=== PATIENT | male | born 1990 | race Caucasian/White ===

== ENCOUNTER 2022-11-01 01:22 | Emergency (ER) | payer OTHER, SELFPAY ==
--- NOTE | 2022-11-01 01:24 | ECG_ITS ---
Measurements Intervals [place] Rate: 88 P: 53 RI: 163 QRS: 27 QRSD: 90 T: 20 QT: 352 QTc: 426 Interpretive Statements SINUS RHYTHM WITH SINUS ARRHYTHMIA LOW QRS VOLTAGE IN PRECORDIAL LEADS BORDERLINE ECG NO PREVIOUS ECG AVAILABLE FOR COMPARISON Electronically Signed On 11-01-2022 6:26:52 CDT by Zafar Duenas D.O.
[2022-11-01 01:31] VITALS: BP 176/96; PULSE 97; RESP 15; TEMP 36.6; O2SAT 99
[2022-11-01 01:42] VITALS: BP 168/109; PULSE 91; TEMP 36.6; O2SAT 97
--- NOTE | 2022-11-01 01:44 | ED.ALCOHOL ---
HPI - Alcohol General Chief Complaint: Alcohol Stated Complaint: alcohol withdrawl, chest feels weird Time Seen by Provider: 11/01/22 01:34 History of Present Illness HPI narrative: Patient presents to the emergency department with alcohol withdrawal symptoms. He normally drinks a pint to a pint and a half of alcohol a day. He states this has been pretty steady for 10 years but has also not always been that much of the day. His last drink was 10 hours prior to arrival to take the edge off . He states he cannot sleep but he is very anxious with a tingling feeling on the back of his head. He has been looking up AA meetings in the area Related Data Allergies Allergy/AdvReac Type Severity Reaction Status Date / Time prochlorperazine Allergy Unknown Unknown Verified 11/01/22 01:38 Review of Systems Review of Systems: Review of systems negative except for what is documented in the HPI [facility] Family History Family History Grandparent Cerebrovascular accident Diabetes mellitus Other Family history of coronary artery disease Family history of malignant neoplasm Hypertension Social History Social History Smoking status: Never smoker Alcohol intake: never Exam Narrative: GENERAL: Well-appearing, well-nourished, and in no acute distress. Slightly anxious HEAD: Normocephalic, atraumatic. EYES: PERRLA and EOMI. ENT: Nares clear, no rhinorrhea or epistaxis. Mucous membranes moist. NECK: Supple. CHEST: Clear to auscultation. No respiratory distress. HEART: Regular rate and rhythm. ABDOMEN: Soft, nontender, nondistended. EXTREMITIES: Normal range of motion. No edema. SKIN: Warm, dry, no rash. NEURO: No focal deficits. Alert and oriented x3. PSYCH: Normal mood and affect. Course Course Emergency Course: Librium ordered Telemetry ordered due to alcohol withdrawal to evaluate for dysrhythmias. Evaluated by myself. Rhythm NS Rate 80 Vital Signs Vital signs: Vital Signs Temperature 36.6 C 11/01/22 01:31 Pulse Rate 97 11/01/22 01:31 Respiratory Rate 15 11/01/22 01:31 Blood Pressure 176/96 H 11/01/22 01:31 Pulse Oximetry 99 09/20/23 01:31 Oxygen Delivery Room Air 11/01/22 01:31 Temperature 36.6 C 11/01/22 01:42 Pulse Rate 91 11/01/22 01:42 Respiratory Rate 15 11/01/22 01:31 Blood Pressure 168/109 H 11/01/22 01:42 Pulse Oximetry 97 11/01/22 01:42 Oxygen Delivery Room Air 11/01/22 01:31 MDM - Alcohol MDM Narrative Medical decision making narrative: Labs ordered and are normal Pt feeling better VSS Discharge Plan Discharge Clinical Impression: Alcohol withdrawal Qualifiers: Complication of substance-induced condition: uncomplicated Qualified Code(s): F10.930 - Alcohol use, unspecified with withdrawal, uncomplicated Patient Disposition: Home, Self-Care Condition: Stable Instructions: Antibiotic Form, Abuse of Alcohol (ED), Alcohol Withdrawal (ED) Prescriptions: New chlordiazepoxide HCl 25 mg capsule 25 mg PO TID PRN (Reason: alcohol withdrawal) Qty: 20 0RF Follow-up/Referrals: Anand Sahh MD [Primary Care Provider] - Time of Disposition: 03:45
[2022-11-01 01:47] VITALS: RESP 20; O2SAT 97
[2022-11-01] MEDS: chlordiazePOXIDE (*CRX) 25 MG CAPSULE PO (02:03)
[2022-11-01 02:04] LABS: Basophils Absolute Auto 0.1 K/mm3 (0.0-0.1); Eosinophils Absolute Auto 0.3 K/mm3 (0-0.3); Eosinophils Percent Auto 6.6 % (0-4.4); Hematocrit 44.7 % (42.0-52.0); Hemoglobin 15.5 g/dL (14.0-18.0); Immature Granulocyte Absolute 0.03 K/mm3 (0.00-0.031); Immature Granulocyte Percent A 0.6 % (0-0.5); Lymphocytes Absolute Auto 1.93 K/mm3 (0.9-3.2); Mean Corpuscular HGB Conc 34.7 g/dl (32-36); Mean Corpuscular Hemoglobin 31.6 pg (26-34); Mean Corpuscular Volume 91.2 fl (80-100); Mean Platelet Volume 11.9 fl (7.4-10.4); Monocytes Absolute Auto 0.4 K/mm3 (0.1-0.6); Monocytes Percent Auto 8.1 % (2.6-8.5); Neutrophils Absolute Auto 2.1 K/mm3 (1.3-6.7); Neutrophils Percent Auto 43.7 % (45.5-73.1); Platelet Count Result 162 k/mm3 (150-375); Red Cell Distribution Width 11.6 % (11.5-14.5); White Blood Count 4.8 K/mm3 (4.5-10.0)
[2022-11-01 02:13] LABS: Alanine Aminotransferase 269 U/L (6-50); Albumin Level 4.9 g/dL (3.5-5.1); Alkaline Phosphatase 86 U/L (38-126); Anion Gap 9 mmol/L (8-16); Aspartate Amino Transferase 163 U/L (17-59); Bilirubin,Total 0.8 mg/dL (0.2-1.3); Blood Urea Nitrogen 14 mg/dL (9-20); Calcium 9.3 mg/dL (8.4-10.2); Carbon Dioxide 28 mmol/L (22-30); Chloride 99 mmol/L (98-107); Estimated CRCL calculation 122 ml/min; Estimated Glomerular Filt Rate > 60; Glucose 126 mg/dL (65-110); Potassium 3.6 mmol/L (3.4-5.0); Sodium 136 mmol/L (137-145)
[2022-11-01 03:37] VITALS: BP 161/110; PULSE 76; RESP 17; O2SAT 98
[2022-11-01 04:03] VITALS: BP 156/95; PULSE 81; RESP 20; O2SAT 100
== END 2022-11-01 03:55 | disposition home or self-care (01) ==
PROVIDERS: Emergency Provider Emergency Medicine; PCP Family Medicine
DX: F10.230 Alcohol dependence with withdrawal, uncomplicated (principal); Y90.9 Presence of alcohol in blood, level not specified; R94.31 Abnormal electrocardiogram [ECG] [EKG]
CPT/HCPCS: 36415; 80053; 85025; 93005; 99283; 99284; A9270

== ENCOUNTER 2023-09-12 05:59 | Emergency (ER) | payer OTHER, SELFPAY ==
[2023-09-12 06:03] VITALS: BP 173/114; PULSE 122; RESP 18; TEMP 36.7; O2SAT 97
--- NOTE | 2023-09-12 06:58 | ED.PSYCH ---
HPI - Psych General Chief Complaint: Psychiatric Symptoms Stated Complaint: I'm fighting depression' Time Seen by Provider: 09/12/23 06:10 Source: patient and family Limitations: no limitations History of Present Illness HPI Narrative: Patient is a 32-year-old male presents to the emergency department accompanied by his father for depression. Patient states he has been fighting depression for the past 2 months, feels like it has overall been getting worse. Patient denies suicidal or homicidal ideations. Patient denies any history of psychiatric illness. Patient denies hallucinations. Patient denies any history of self-harm. Patient denies ever having any psychiatric care in the past. Patient denies any stressors in his life. Patient denies alcohol use or illicit drug use. Patient admits to history of alcohol use in which he was drinking frequently and quit 1 month ago and did not have any severe alcohol withdrawal and has been doing well without alcohol for the past 1 month. Patient denies urinary discomfort, cough, fever, recent injuries, recent illness, nausea, vomiting, diarrhea, chest pain, difficulty breathing. Patient has never been on medications for depression in the past. Related Data Allergies Allergy/AdvReac Type Severity Reaction Status Date / Time prochlorperazine Allergy Unknown Unknown Verified 09/12/23 06:12 Review of Systems Review of Systems: A 10 system review of systems was completed on the patient and is negative except for what is stated in the HPI. Nursing and ancillary documentation was reviewed. [facility] Family History Family History Grandparent Cerebrovascular accident Diabetes mellitus Other Family history of coronary artery disease Family history of malignant neoplasm Hypertension Social History Social History Smoking status: Never smoker Alcohol intake: never Substance use type: does not use Comments At time of signature, I have reviewed and agree with nursing past medical, surgical, social and family history unless otherwise noted. Please see the nursing chart for further information. There is no relevant family history pertinent to the presenting complaint. Exam Narrative: CONST: No acute distress. Well nourished. HENMT: Head is normocephalic and atraumatic. Moist mucous membranes. No posterior oropharynx erythema. EYES: No scleral icterus. No conjunctival injection or pallor. PERRL. NECK: No meningeal signs. RESP: Able to speak in full sentences. Normal respiratory effort. CTAB. CARDIO: Regular rate. Regular rhythm. 2+ DP and radial pulses bilaterally. GI: Nondistended. No tenderness to palpation. Soft. : No CVA tenderness to palpation. SKIN: No rashes or lesions noted on exposed skin. NEURO: Oriented x3. Moves all extremities. EXTREM/MSK/BACK: No pedal edema. Psych: Appearance: well kempt Mental Status: mental status grossly normal Speech and movement: Normal speech and movement present Affect: normal affect Attitude: cooperative Thought process: Normal thought process present Thought content: No Suicidality present and No Homicidality present Insight: Good insight present (Psych) Judgement: Good judgement present (Psych) Course Vital Signs Vital signs: Vital Signs Temperature 98.1 F 09/12/23 06:03 Pulse Rate 122 H 09/12/23 06:03 Respiratory Rate 18 09/12/23 06:03 Blood Pressure 173/114 H 09/12/23 06:03 Pulse Oximetry 97 09/12/23 06:03 Oxygen Delivery Room Air 09/12/23 06:03 Temperature 98.1 F 09/12/23 06:03 Pulse Rate 122 H 09/12/23 06:03 Respiratory Rate 18 09/12/23 06:03 Blood Pressure 173/114 H 09/12/23 06:03 Pulse Oximetry 97 09/12/23 06:03 Oxygen Delivery Room Air 09/12/23 06:03 MDM - Psych MDM Narrative Medical decision making narrative: Patient presents with the above complaint. Ini
[2023-09-12] MEDS: amLODIPine BESYLATE 5 MG TABLET PO (07:28)
[2023-09-12 07:29] VITALS: BP 150/103
== END 2023-09-12 07:29 | disposition home or self-care (01) ==
PROVIDERS: Emergency Provider Student in an Organized Health Care Education/Training Program; PCP Family Medicine
DX: F32.A Depression, unspecified (principal)
CPT/HCPCS: 99283; A9270

== ENCOUNTER 2024-10-02 15:47 | Emergency (ER) | payer OTHER, SELFPAY ==
[2024-10-02 15:55] VITALS: BP 132/53; PULSE 76; RESP 18; TEMP 36.5; O2SAT 99
--- NOTE | 2024-10-02 16:13 | ED.SKABFB ---
HPI - Skin/Abscess/Foreign Bdy General Chief complaint: Skin/Abscess/Foreign Body Stated complaint: eye infection Time Seen by Provider: 10/02/24 16:14 Source: patient, RN notes reviewed and old records reviewed Mode of arrival: ambulatory Limitations: no limitations History of Present Illness HPI narrative: 34-year-old male presents to the [facility] with concerns for poison alejandro. Has swelling to the upper eyelid without visual changes. No redness, discharge. No trauma. Multiple areas of possible poison alejandro to the arms, left flank area Related Data Home Medications ?Medication ?Instructions ?Recorded ?Confirmed ?Last Taken ?Type vit B complex 100 combo no.2 100 tablet PO 01/15/24 Unknown History mg tablet,extended release cholecalciferol (vitamin D3) 10 10 mcg PO DAILY 10/02/24 10/02/24 Unknown History mcg (400 unit) capsule Allergies Allergy/AdvReac Type Severity Reaction Status Date / Time prochlorperazine Allergy Mild Other Verified 10/02/24 16:03 Review of Systems Review of Systems: All systems reviewed & are unremarkable except as noted in HPI and below Constitutional: Constitutional: Reports no additional constitutional complaints ENT: Reports system reviewed and no additional complaints, except as documented Cardiovascular: Cardiovascular: Reports no additional cardiovascular complaints, Denies chest pain and Denies dyspnea Respiratory: Respiratory: Reports no additional respiratory complaints, Denies chest congestion, Denies cough and Denies dyspnea Musculoskeletal: Musculoskeletal: Reports no additional musculoskeletal complaints Integumentary/Breasts: Skin/Breast: Reports as per HPI [facility] Family History Family History Grandparent Cerebrovascular accident Diabetes mellitus Other Family history of coronary artery disease Family history of malignant neoplasm Hypertension Social History Social History Smoking status: Never smoker Alcohol intake: never Substance use type: does not use Comments At the time of my signature, I reviewed and agree with the nursing past medical, surgical, social, and family history. There is no relevant family history pertinent to the patient complaint. Exam Const: General: cooperative, healthy appearing, comfortable, no acute distress, well developed, alert and well nourished Nutritional Appearance: well nourished Orientation/consciousness: patient oriented x3 Limitations: no limitations HENMT: Head: normal to inspection Ears: hearing grossly normal bilaterally, external ears normal, TM's normal bilaterally, EAC's normal, mastoids normal and no periauricular adenopathy Face and sinus: normal facial exam and face symmetric Throat: posterior oropharynx normal, uvula midline and no uvular edema Eyes: General: appearance normal, both eyes and all related structures Alignment and Position: alignment normal Neck: Neck: normal visual inspection, full ROM, no lymphadenopathy and no meningeal signs Chest: Chest palpation & inspection: normal inspection of the chest Resp: Effort & Inspection: normal respiratory effort and able to speak in complete sentences Auscultation: clear to auscultation bilaterally, no crackles, no rales, no rhonchi and no wheezes Cardio: Rate: regular rate Skin: General skin exam: normal color and no rashes or lesions noted Rashes: rashes noted Other: Multiple areas, small patches of red, raised itchy areas, concerns for upper eyelid Neuro: General: patient oriented x3, gait normal, moves all extremities and no meningeal signs Cognition (Neuro): normal cognition Speech: normal speech Gait exam (Neuro): Normal gait present Extrem: General: normal to inspection, full ROM, capillary refill normal and normal gait Psych: Appearance: grossly normal and well kempt Mental Status: mental status grossly normal Speech and movement: Normal speech and movement present and Clear speech present Affect: normal affect Attitude: cooperative Course Course Level of Care: Express Care Visit Vital Signs Vital signs: Vital Signs Temperature 97.7 F 10/02/24 15:55 Pulse Rate 76 10/02/24 15:55 Respiratory Rate 18 10/02/24 15:55 Blood Pressure 132/53 L 10/02/24 15:55 Pulse Oximetry 99 10/02/24 15:55 Oxygen Delivery Room Air 10/02/24 15:55 Temperature 97.7 F 10/02/24 15:55 Pulse Rate 76 10/02/24 15:55 Respiratory Rate 18 10/02/24 15:55 Blood Pressure 132/53 L 10/02/24 15:55 Pulse Oximetry 99 10/02/24 15:55 Oxygen Delivery Room Air 10/02/24 15:55 Reviewed MDM - Skin/Abscess/Foreign Bdy MDM Narrative Medical decision making narrative: Patient sitting in exam room. Patient is nontoxic, vitals stable. Patient presents with a rash. Patient rash most likely dermatitis, poison alejandro Patient appropriate for outpatient treatment with close follow-up Discharge instructions reviewed with patient, as well as provided in writing per nursing staff. The instructions also include specific and strict return/GO TO THE ER as well as f/u information. All questions have been answered, and the patient deny any further questions with discharge and discharge plan. Some parts of this dictation were generated by voice recognition software and may contain typographical and/or grammatical inaccuracies. Differential Diagnosis Differential diagnosis: Likely abscess of skin or subcutaneous tissue, urticaria, cellulitis, insect bites, impetigo and contact dermatitis Critical Care Time Critical Care Time Critical Care Time: No Discharge Plan Discharge Clinical Impression: Irritant contact dermatitis due to plant Patient Disposition: Home Condition: Stable Instructions: Contact Dermatitis (ED) Additional Instructions: The most important part of your care is follow up with Primary care provider. Take Benadryl 25 mg every 8 hours for itching Take Zyrtec every day Take Pepcid 20mg daily for 7 days Take the steroids starting today Avoid hot showers, Take cool showers. Hot showers will make rashes worse Apply cool compresses every 2-3 hours for 15 minutes For the itching you can apply hydrocortisone cream or cortisone 10. Go to the ER for new or worsening symptoms such as shortness of breath. Patient Language: Belarusian Prescriptions: New prednisone 20 mg tablet See Rx Instructions .Route .COMPLEX Qty: 20 0RF Rx Instructions: Take 60 mg daily for 3 days, 40 mg daily for 3 days, 20 mg daily for 3 days, 10mg day for 3 days No Action cholecalciferol (vitamin D3) 10 mcg (400 unit) capsule 10 mcg PO DAILY vit B complex 100 combo no.2 100 mg tablet extended release PO Follow-up/Referrals: Anand Shah MD [Primary Care Provider, [facility]] - 1 Week Referral Note: express care follow up Time of Disposition: 16:25
== END 2024-10-02 16:29 | disposition home or self-care (01) ==
PROVIDERS: Emergency Provider Nurse Practitioner; PCP Family Medicine
DX: L24.7 Irritant contact dermatitis due to plants, except food (principal)
CPT/HCPCS: 99213; G0463